=== PATIENT | male | born 1965 | race African-American/Black ===

== ENCOUNTER 2019-04-09 00:50 | Emergency (ER) | payer MEDICARE, OTHER ==
[2019-04-09] MEDS ORDERED: Sodium Chloride 0.9% 1,000 ML IV SCH (01:30)
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
--- NOTE | 2019-04-09 07:01 | CT ---
Head CT Technique: Multiple axial sections through the brain were obtained. Intravenous contrast was not utilized. Comparison: No prior intracranial imaging is available. Findings: Ventricles along with basal cisterns and sulci over the convexities appear within normal limits. Minimal high density dot noted in the area of the foramen of [place]. No other abnormal parenchymal densities are seen.. No midline shift or mass effect is seen. Visualized paranasal sinuses show nothing acute. Visualized mastoid sinuses are also clear. No acute calvarial abnormality is appreciated. Impression: 1. Minimal high density dot in the area of the foramen of [place]. I believe that this is most likely incidental and due to slight calcification of the choroid plexus but difficult to completely exclude minimal area of hemorrhage. Follow-up noncontrast head CT study could be obtained in 48 hours to make sure findings are stable (if patient's clinical status is stable). 2. No additional abnormality is seen on noncontrast head CT study. Diagnostic code #3 I agree with preliminary report from [facility], finalized on 04/09/19, 3:23 AM Central Time
--- NOTE | 2019-04-09 07:17 | CT ---
CT chest Technique: Multiple axial sections through the chest were obtained. Intravenous contrast was utilized. Comparison: No prior chest imaging. Findings: Mediastinum and hilar regions appear within normal limits. No adenopathy or mediastinal fluid is seen. No axillary adenopathy is seen. Slight gynecomastia is identified bilaterally. No pericardial fluid is seen. Lungs are clear. No pulmonary contusions or acute parenchymal change is seen. No pneumothorax or pleural effusions are noted. No acute rib fracture is seen. Vertebral body heights are maintained within the thoracic spine. No abnormal subluxation is seen. Reconstructed sagittal images of the sternum appear intact. Impression: 1. Slight gynecomastia which is symmetric between right and left sides. 2. Nothing acute is appreciated on CT study of the chest. Diagnostic code #2 I agree with preliminary report from [facility], finalized on 04/09/19, 3:[address] abdomen and pelvis Technique: Multiple axial sections were obtained from above the dome of the diaphragm inferiorly through the pubic symphysis. Intravenous contrast was utilized. No oral contrast was utilized. Findings: Significant artifact is seen from the patient's arm as well as motion artifact. Comparison: No prior abdominal imaging. Findings: Liver shows no discrete abnormality. Spleen also shows no discrete abnormality. Adrenal glands show no nodule. Pancreas appears within normal limits. Gallbladder contains no calcified gallstones. Both kidneys show symmetric contrast enhancement without discrete abnormality. Aorta shows no aneurysm with atherosclerotic change seen within the aorta and iliac vessels. No retroperitoneal adenopathy or mesenteric abnormalities are seen. No pelvic mass or adenopathy is seen. Appendix is seen and is normal in size. No free fluid or inflammatory change is seen. Bone window settings were reviewed which show no definite acute-appearing abnormality. Impression: 1. Artifact as described above. Within this limitation, nothing acute is appreciated on CT study of the abdomen and pelvis. Diagnostic code #2 I agree with preliminary report from [facility], finalized on 04/09/19, 3:10 AM Central Time
--- NOTE | 2019-04-09 07:17 | CT ---
CT cervical spine Technique: Multiple axial sections through the cervical spine were obtained. Study was obtained from above C1 inferiorly to the top of T2. Reconstructed sagittal and coronal images were reviewed. Comparison: No prior cervical spine imaging. Findings: Vertebral body heights and disc spaces are maintained. Vertebral bodies and posterior arches are intact with no fracture being seen. No bony central or bony neural foraminal stenosis is seen. No abnormal subluxation is seen. Impression: 1. Nothing acute is appreciated on CT study of the cervical spine. Diagnostic code #1 I agree with preliminary report from [facility], finalized on 04/09/19, 3:11 AM Central Time
== END 2019-04-09 11:06 | disposition home or self-care (01) ==
LOC: JD.ED 00:50
DX: S51.011A Laceration without foreign body of right elbow, initial encounter (principal); S61.012A Laceration without foreign body of left thumb without damage to nail, initial encounter; F15.10 Other stimulant abuse, uncomplicated; F10.120 Alcohol abuse with intoxication, uncomplicated; V48.5XXA Car driver injured in noncollision transport accident in traffic accident, initial encounter; Y92.410 Unspecified street and highway as the place of occurrence of the external cause
CPT/HCPCS: 36415; 70450; 71260; 72125; 74177; 80053; 80306; 85007; 85027; 85610; 85730; 93005; 96360; 96361; 99285; G0480; J7040; 93010; 99284